=== PATIENT | male | born 2000 | race American Indian/Alaskan Native ===

== ENCOUNTER 2020-01-25 08:37 | Emergency (ER) | payer SELFPAY ==
[2020-01-25 10:28] VITALS: BP 114/64
--- NOTE | 2020-01-25 11:08 | Emergency Department Report ---
Chief Complaint: Urogenital-Male Stated Complaint: DISCHARGE GENTIALS AREA Time Seen by Provider: 01/25/20 11:04 - HPI History of Present Illness: 19 y/o male comes in for penile discharge that started last night. Denies any fever, chill, abd pain, N?V or diarrhea. - Exam Vital Signs: Vital Signs 01/25/20 08:58 Temperature 97.6 F Pulse Rate 59 L Respiratory 16 Rate Blood Pressure 114/64 O2 Sat by Pulse 100 Oximetry MSE screening note: Focused history and physical exam performed. Due to findings the following was ordered: 19 y/o male comes in for penile discharge that started last night. Denies any fever, chill, abd pain, N/V or diarrhea. Follow up with [facility]. Handout given. ED Disposition for MSE Disposition: MED SCREENING EXAM-LEFT Is pt being admited?: No Does the pt Need Aspirin: No Condition: Stable Additional Instructions: Follow up with [facility]. Handout given. Referrals: PRIMARY CAREMD [Primary Care Provider] - 3-5 Days [facility] [Outside] - 3-5 Days [facility] [Outside] - 3-5 Days [facility] [Outside] - 3-5 Days
== END 2020-01-25 11:17 | disposition left against medical advice (07) ==
LOC: ED 08:37
DX: R36.9 Urethral discharge, unspecified (principal); Z91.018 Allergy to other foods
CPT/HCPCS: 99282